=== PATIENT | female | born 1995 | race Caucasian/White ===

== ENCOUNTER 2018-06-02 12:55 | Emergency (ER) | payer SELFPAY ==
--- NOTE | 2018-06-02 13:53 | EDM.PDOC ---
ED HPI GENERAL MEDICAL PROBLEM - General Chief Complaint: [employer]GE [employer]ER Problem Stated Complaint: [facility] Time Seen by Provider: 06/02/18 13:20 Source of Information: Reports: Patient, RN Notes Reviewed History Limitations: Reports: No Limitations - History of Present Illness INITIAL COMMENTS - FREE TEXT/NARRATIVE: Patient is a 22 year old female who presents to the ED via [facility] for the evaluation of a syncopal episode during . She states that she thinks she is around 10 weeks along. She is unsure of her LMP. 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 [place]. Her blood sugar at that time was 70 and 73 , she was given oral glucose and that seemed to help. Her BP on scene was 84/77 as well, they did start an IV and gave her 500 mL bolus of fluid. She is unsure of how long she was out when she passed out, but she was helped to the ground and did not hit her head. She remembers everything up to and after the syncopal episode. She does state that she has some nausea and vomiting related to , but wishes to not have any medications at this time for any nausea. She denies any chest pain, shortness of breath, vaginal bleeding or cramping. - Related Data Allergies Allergy/AdvReac Type Severity Reaction Status Date / Time No Known Allergies Allergy Verified 06/02/18 13:13 Home Meds: Home Meds . [No Known Home Meds] 06/02/18 [History] Past Medical History - Past Health History Medical/Surgical History: Denies Medical/Surgical History Social & Family History - Tobacco Use Smoking Status *Q: Never Smoker - Caffeine Use Caffeine Use: Reports: Tea - Recreational Drug Use Recreational Drug Use: No ED ROS GENERAL - Review of Systems Review Of Systems: See Below Constitutional: Reports: No Symptoms HEENT: Reports: No Symptoms Respiratory: Reports: No Symptoms Cardiovascular: Reports: No Symptoms Endocrine: Reports: No Symptoms GI/Abdominal: Reports: Nausea, Vomiting Musculoskeletal: Reports: No Symptoms Skin: Reports: No Symptoms Neurological: Reports: Syncope. Denies: Dizziness, Headache, Numbness, Trouble Speaking, Weakness, Change in Speech Psychiatric: Reports: No Symptoms Hematologic/Lymphatic: Reports: No Symptoms Immunologic: Reports: No Symptoms ED EXAM - Physical Exam Exam: See Below Exam Limited By: No Limitations General Appearance: Alert, WD/WN, No Apparent Distress Eye Exam: Bilateral Eye: EOMI, Normal Inspection, PERRL Ears: Normal External Exam Nose: Normal Inspection Throat/Mouth: Normal Inspection, Normal Oropharynx, No Airway Compromise Head: Atraumatic, Normocephalic Neck: Normal Inspection, Supple, Non-Tender, Full Range of Motion Respiratory/Chest: No Respiratory Distress, Lungs Clear, Normal Breath Sounds, No Accessory Muscle Use, Chest Non-Tender Cardiovascular: Normal Peripheral Pulses, Regular Rate, Rhythm, No Murmur GI/Abdominal Exam: Normal Bowel Sounds, Soft, Non-Tender, No Organomegaly, No Distention, No Mass Heart Tones: Present Heart Tones per Min: 150 Movement: Not Appreciated Extremities: Normal Inspection, Normal Capillary Refill Neurological: Alert, Oriented, Normal Cognition, No Motor/Sensory Deficits Psychiatric: Normal Affect, Normal Mood Skin Exam: Warm, Dry, Intact, Normal Color, No Rash Course - Vital Signs Last Recorded V/S: Last Vital Signs Temp 99.9 F 06/02/18 13:05 Pulse 104 H 06/02/18 13:05 Resp 20 06/02/18 13:05 BP 124/61 06/02/18 13:05 Pulse Ox 99 06/02/18 13:05 - Orders/Labs/Meds Labs: Laboratory Tests 06/02/18 06/02/18 06/02/18 Range/Units 13:04 13:26 13:26 WBC 13.83 H (3.98-10.04) K/mm3 RBC 4.82 (3.98-5.22) M/mm3 Hgb 13.1 (11.2-15.7) gm/L Hct 38.5 (34.1-44.9) % MCV 79.9 (79.4-94.8) fl MCH 27.2 (25.6-32.2) pg MCHC 34.0 (32.2-35.5) g/dl RDW Std Deviation 38.0 (36.4-46.3) fL Plt Count 252 (182-369) K/mm3 MPV 11.9 (9.4-12.3) fl Neutrophils % (Manual) 76 H (40-60) % Band Neutrophils % 2 (0-10) % Lymphocytes % (Manual) 12 L (20-40) % Atypical Lymphs % 0 % Monocytes % (Manual) 9 (2-10) % Eosinophils % (Manual) 1 (0.7-5.8) % Basophils % (Manual) 0 L (0.1-1.2) Toxic Granulation 1+ slight Platelet Estimate Adequate Plt Morphology Comment See note RBC Morph Comment Normal Sodium 137 (136-145) mEq/L Potassium 4.2 (3.5-5.1) mEq/L Chloride 106 (98-107) mEq/L Carbon Dioxide 24 (21-32) mEq/L Anion Gap 11.2 (5-15) BUN 12 (7-18) mg/dL Creatinine 0.6 (0.55-1.02) mg/dL Est Cr Clr Drug Dosing 116.32 mL/min Estimated GFR (MDRD) > 60 (>60) mL/min BUN/Creatinine Ratio 20.0 H (14-18) Glucose 92 (74-106) mg/dL POC Glucose 98 (70-105) mg/dL Calcium 8.6 (8.5-10.1) mg/dL Total Bilirubin 0.3 (0.2-1.0) mg/dL AST 13 L (15-37) U/L ALT 18 (14-59) U/L Alkaline Phosphatase 47 (46-116) U/L Total Protein 6.9 (6.4-8.2) g/dl Albumin 3.1 L (3.4-5.0) g/dl Globulin 3.8 gm/dL Albumin/Globulin Ratio 0.8 L (1-2) HCG, Quant 077706.0 mIU/mL - Re-Assessments/Exams Free Text/Narrative Re-Assessment/Exam: 06/02/18 13:54 Pt presents to ED for the evaluation of syncopal episodes. It is likely that this was due to a drop in blood sugar. Have ordered CBC, CMP, and quant HCG to evaluated further. Will recommend heartier, more frequent meals to keep blood sugar levels at a more even level. Will recommend increased fluid intake as well. 06/02/18 14:37 Labs are back and are WNL, she is a little dry. Her Quant level is [id number], this could put her in the 8-12 weeks along range. Departure - Departure Time of Disposition: 14:38 Disposition: Home, Self-Care 01 Condition: Fair Clinical Impression: Syncope and collapse - Discharge Information *PRESCRIPTION DRUG MONITORING PROGRAM REVIEWED*: No *COPY OF PRESCRIPTION DRUG MONITORING REPORT IN PATIENT GEORGE: No Instructions: Syncope, [id number] Forms: ED Department Discharge Additional Instructions: You have been evaluated in the ED for your syncopal episode. This is likely due to low blood sugar and slight dehydration. Please eat more hearty, frequent meals during the day and increase your fluid intake. Your quantitative HCG level is 150,140 which puts you in the 8-12 week range of . Please return to ED if your symptoms should change or worsen.
== END 2018-06-02 15:15 | disposition home or self-care (01) ==
LOC: JD.ED 12:55
DX: R55 Syncope and collapse (principal)
CPT/HCPCS: 36415; 80053; 82962; 84702; 85007; 85027; 99284

== ENCOUNTER 2025-03-26 00:32 | Emergency (ER) | payer SELFPAY ==
[2025-03-26 01:29] LABS: BASOPHILS ABSOLUTE AUTO 0.1 K/mm3 (0.0-0.2); BASOPHILS PERCENT AUTO 0.4 % (0.0-1.0); EOSINOPHILS ABSOLUTE AUTO 0.2 K/mm3 (0.0-0.4); EOSINOPHILS PERCENT AUTO 1.4 % (0.0-6.0); IMMATURE GRAN ABSOLUTE AUTO 0.03 K/mm3 (0.00-0.05); IMMATURE GRAN PERCENT AUTO 0.2 % (0.0-0.4); LYMPHOCYTES ABSOLUTE AUTO 2.9 K/mm3 (1.0-4.8); LYMPHOCYTES PERCENT AUTO 23.3 % (24.0-44.0); MEAN PLATELET VOLUME 11.3 fl (9.4-12.3); MONOCYTES ABSOLUTE AUTO 1.3 K/mm3 (0.0-0.8); MONOCYTES PERCENT AUTO 10.8 % (0.0-8.0); NEUTROPHILS ABSOLUTE AUTO 7.8 K/mm3 (1.8-7.7); NEUTROPHILS PERCENT AUTO 63.9 % (41.0-71.0); NRBC ABSOLUTE 0.00 (0.00-0.02); NRBC PERCENT 0.0 % (0.0-0.2); PLATELET COUNT,PLT 259 K/mm3 (150-400); RED BLOOD CELL COUNT 5.01 M/mm3 (4.10-5.30); WHITE BLOOD CELL COUNT,WBC 12.22 K/mm3 (3.9-11.3)
[2025-03-26 02:11] LABS: A/G RATIO 1.1 (1-2); ALANINE AMINOTRANSFERASE,ALT 24.0 U/L (14-59); ASPARTATE AMNIOTRANSFERASE,AST 16.0 U/L (15-37); BILIRUBIN TOTAL 0.3 mg/dL (0.2-1.0); BLOOD UREA NITROGEN,BUN 9.0 mg/dL (7-18); CARBON DIOXIDE,CO2 28.0 mEq/L (21-32); CHLORIDE,CL 106.0 mEq/L (98-107); CREATININE 0.7 mg/dL (0.55-1.02); EST CRCL DRUG DOSING (CG) 93.79 mL/min; ESTIMATED GFR 120.0 mL/min (>60); GLUCOSE RANDOM 101.0 mg/dL (70-99); POTASSIUM,K 3.9 mEq/L (3.5-5.1); PROTEIN TOTAL,TP 6.9 g/dl (6.4-8.2); SODIUM,NA 143.0 mEq/L (136-145)
[2025-03-26] MEDS: Amoxicillin/Clavulanate K 875-125 MG Tab PO ONE (03:04)
== END 2025-03-26 03:10 | disposition home or self-care (01) ==
LOC: JD.ED 00:32
DX: J18.9 Pneumonia, unspecified organism (principal); Z79.899 Other long term (current) drug therapy
CPT/HCPCS: 36415; 71046; 80053; 83880; 84484; 84703; 85025; 87428; 93005; 99285; A9270; 93010; 99284